=== PATIENT | female | born 1985 | race Caucasian/White ===

== ENCOUNTER 2017-06-09 14:55 | Observation (INO) | payer MEDICAID ==
[~2017-06-09] VITALS: Ht 165.1 cm; Wt 71.7 kg
[2017-06-09 17:41] VITALS: BP_SYST 109
== END 2017-06-09 16:25 | disposition home or self-care (01) ==
LOC: SPU 14:55
PROVIDERS: ADMIT Specialist; ATTEND Specialist
DX: O62.9 Abnormality of forces of labor, unspecified (principal); Z3A.00 Weeks of gestation of pregnancy not specified
CPT/HCPCS: G0378

== ENCOUNTER 2017-06-10 07:25 | Inpatient (IN) | payer MEDICAID ==
[~2017-06-10] VITALS: Ht 165.1 cm; Wt 71.7 kg
[2017-06-10 08:06] VITALS: BP_SYST 122
[2017-06-10] MEDS ORDERED: LR 1,000 ML IV ONE (09:09)
[2017-06-10] MEDS ORDERED: OXYTOCIN/NORMAL SALINE 1,000 ML IV SCH (09:09)
[2017-06-10] MEDS ORDERED: TERBUTALINE SULFATE 1 MG/ML VIAL SUBCUT ONE (09:15)
[2017-06-10] MEDS ORDERED: COMMUNICATION ORDER XX ONE (09:30)
[2017-06-10 09:35] LABS: BASOPHILS % (AUTO) 0.4 % (0.0-2.0); EOSINOPHILS % (AUTO) 0.2 % (0.0-4.0); HEMOGLOBIN 12.3 g/dL (12.0-16.0); LYMPHOCYTES # (AUTO) 1.3 K/uL (1.0-5.5); LYMPHOCYTES % (AUTO) 10.4 % (20.5-51.5); MEAN CORPUSCULAR HEMOGLOBIN 32 pg (27-31); MEAN CORPUSCULAR HGB CONC 34 % (32-36); MEAN CORPUSCULAR VOLUME 93 fL (79.0-98.0); MONOCYTES # (AUTO) 1.1 K/uL (0.0-1.0); MONOCYTES % (AUTO) 8.6 % (1.7-9.3); NEUTROPHILS % (AUTO) 80.4 % (40.0-70.0); PLATELET COUNT (AUTO) 210 K/uL (130-430); RED CELL DISTRIBUTION WIDTH 12.3 % (9.0-15.0); WHITE BLOOD COUNT (AUTO) 12.4 K/uL (4.8-10.8)
[2017-06-10] MEDS ORDERED: OXYTOCIN 30 UNIT in NACL 0.9% 1,000 ML IV ONE (09:45)
[2017-06-10] MEDS: NALBUPHINE HCL 10 MG/ML AMP IVP PRN ×2 (11:03→12:32)
[2017-06-10] MEDS ORDERED: FENT2mCg/mL-ROPIVA0.2%/NS EPID 150 ML EP ONE (12:58)
[2017-06-10] MEDS ORDERED: FENT2mCg/mL-ROPIVA0.2%/NS EPID 150 ML EP SCH (12:58)
[2017-06-10] MEDS: LR 1,000 ML IV SCH ×2 (13:43→20:00)
[2017-06-10] MEDS ORDERED: ROPIVACAINE 40 MG/20 ML AMP EP ONE (22:00)
[2017-06-10] MEDS ORDERED: ACETAMINOPHEN 325 MG TABLET PO ONE (22:15)
[2017-06-10] MEDS ORDERED: AMPICILLIN SODIUM 2 GM in NS 100 ML IV ONE (22:15)
[2017-06-10] MEDS ORDERED: AMPICILLIN SODIUM 2 GM VIAL ONE (22:36)
[2017-06-10] MEDS ORDERED: CEFAZOLIN 2 GM IVPB PREMIX 50 ML IV ONE (23:30)
[2017-06-11] MEDS ORDERED: BISACODYL 10 MG/SUPPOSITORY RC PRN (00:15)
[2017-06-11] MEDS ORDERED: LANOLIN 7 GM OINT. TP PRN (00:15)
[2017-06-11] MEDS ORDERED: MORPHINE SULFATE 10 MG/ML VIAL IVP PRN (00:15)
[2017-06-11] MEDS ORDERED: ANUSOL 1 EA SUPP.RECT (PREPARATION H) RC PRN (00:15)
[2017-06-11] MEDS ORDERED: DOCUSATE SODIUM 100 MG CAPSULE PO PRN (00:15)
[2017-06-11] MEDS ORDERED: LR 1,000 ML IV SCH (00:15)
[2017-06-11] MEDS ORDERED: DIPHENHYDRAMINE INJ 50 MG/ML VIAL IM PRN (00:45)
[2017-06-11] MEDS ORDERED: MEPERIDINE HCL/PF 25 MG/ML DISP.SYRIN IVP PRN (00:45)
[2017-06-11] MEDS ORDERED: KETOROLAC TROMETHAMINE 60 MG/2 ML VIAL IM PRN (00:45)
[2017-06-11] MEDS ORDERED: NALOXONE HCL 0.4 MG/ML AMP (NARCAN) IVP PRN (00:45)
[2017-06-11] MEDS ORDERED: ONDANSETRON HCL 4 MG/2 ML VIAL IVP PRN (00:45)
[2017-06-11] MEDS ORDERED: METOCLOPRAMIDE HCL 10 MG/2 ML VIAL IVP PRN (00:45)
[2017-06-11] MEDS ORDERED: MORPHINE SULFATE 10MG/10ML PF AMP EP SCH (00:45)
[2017-06-11] MEDS ORDERED: MEPERIDINE HCL/PF 50 MG/ML AMP IVP PRN ×2 (00:45)
[2017-06-11 00:55] VITALS: BP_SYST 105
[2017-06-11] MEDS ORDERED: OXYTOCIN/NORMAL SALINE 1,000 ML IV ONE (01:11)
[2017-06-11] MEDS ORDERED: AMPICILLIN SODIUM 1 GM in NS 50 ML IV SCH (02:00)
[2017-06-11] MEDS: CEFAZOLIN 1 GM IVPB PREMIX 50 ML IV SCH ×3 (05:54→18:07)
[2017-06-11] MEDS ORDERED: ONDANSETRON HCL 4 MG/2 ML VIAL IVP ONE ×2 (17:34)
[2017-06-11] MEDS ORDERED: NS IRRIG SOLN 1000 ML IR ONE (17:34)
[2017-06-11] MEDS ORDERED: LR 1,000 ML IV.SOLN IV ONE (17:34)
[2017-06-11] MEDS ORDERED: LIDOCAINE PF 2%, 200 MG/10 ML AMPUL.LUER (EPIDURAL) INJ ONE (17:34)
[2017-06-11] MEDS ORDERED: MORPHINE SULFATE 10MG/10ML PF AMP EP ONE (17:56)
[2017-06-11] MEDS: OXYCODONE/ACETAMINOPHEN 5-325 TABLET PO PRN ×2 (20:31→21:39)
[2017-06-11] MEDS: SIMETHICONE 80 MG TAB.CHEW PO PRN ×2 (20:34→21:53)
[2017-06-11] MEDS: SENNOSIDES/DOCUSATE SODIUM 1 TAB TABLET(SENOKOT-S) PO PRN (20:35)
[2017-06-11] MEDS ORDERED: TEMAZEPAM 15 MG CAPSULE PO PRN (21:00)
[2017-06-12] MEDS: IBUPROFEN 800 MG TABLET PO PRN ×2 (00:06→12:17)
[2017-06-12] MEDS: SENNOSIDES/DOCUSATE SODIUM 1 TAB TABLET(SENOKOT-S) PO PRN ×2 (05:11→12:19)
[2017-06-12] MEDS: OXYCODONE/ACETAMINOPHEN 5-325 TABLET PO PRN ×2 (05:12→16:36)
[2017-06-12] MEDS: SIMETHICONE 80 MG TAB.CHEW PO PRN ×2 (05:12→12:18)
[2017-06-12 07:15] LABS: BASOPHILS % (AUTO) 0.2 % (0.0-2.0); EOSINOPHILS # (AUTO) 0.1 K/uL (0.0-0.4); EOSINOPHILS % (AUTO) 0.9 % (0.0-4.0); HEMATOCRIT 31.5 % (36-48); HEMOGLOBIN 10.8 g/dL (12.0-16.0); LYMPHOCYTES # (AUTO) 1.7 K/uL (1.0-5.5); LYMPHOCYTES % (AUTO) 11.2 % (20.5-51.5); MEAN CORPUSCULAR HEMOGLOBIN 32 pg (27-31); MEAN CORPUSCULAR HGB CONC 34 % (32-36); MEAN CORPUSCULAR VOLUME 93 fL (79.0-98.0); MONOCYTES # (AUTO) 1.2 K/uL (0.0-1.0); MONOCYTES % (AUTO) 8.2 % (1.7-9.3); NEUTROPHILS # (AUTO) 12.2 K/uL (1.8-7.7); NEUTROPHILS % (AUTO) 79.5 % (40.0-70.0); PLATELET COUNT (AUTO) 172 K/uL (130-430); RED BLOOD CELL COUNT(AUTO) 3.38 MIL/uL (4.2-6.2); RED CELL DISTRIBUTION WIDTH 12.6 % (9.0-15.0); WHITE BLOOD COUNT (AUTO) 15.2 K/uL (4.8-10.8)
[2017-06-12] MEDS ORDERED: FENT2mCg/mL-ROPIVA0.2%/NS EPID 150 ML EP SCH (13:30)
== END 2017-06-12 16:45 | disposition home or self-care (01) | DRG 540 ==
LOC: SPU 07:25 → OBSVTOIN 07:25 → SPU 06-11 01:41
PROVIDERS: ADMIT Specialist; ATTEND Specialist
PROC: 10D00Z1 Extraction of Products of Conception, Low, Open Approach (ICD-10-PCS; principal; 2017-06-11)
PROC: 10907ZC Drainage of Amniotic Fluid, Therapeutic from Products of Conception, Via Natural or Artificial Opening (ICD-10-PCS; 2017-06-11)
PROC: 3E033VJ Introduction of Other Hormone into Peripheral Vein, Percutaneous Approach (ICD-10-PCS; 2017-06-11)
DX: O76 Abnormality in fetal heart rate and rhythm complicating labor and delivery (principal); O42.02 Full-term premature rupture of membranes, onset of labor within 24 hours of rupture; O62.0 Primary inadequate contractions; Z37.0 Single live birth; Z3A.38 38 weeks gestation of pregnancy
CPT/HCPCS: 36415; 81002-TC; 85025; 86592; 86870; 86886; 86900; 86901; 87070-TC; 87075-TC; 88307; 94760; J0290; J0690; J1885; J2001; J2274; J2300; J2405; J2590; J2795; J3010; J7030; J7120